=== PATIENT | female | born 1985 | race Two or more races ===

== ENCOUNTER 2025-02-15 06:28 | Day surgery (SDC) | payer OTHER, SELFPAY | END 2025-02-15 12:09 | disposition home or self-care (01) | LOC: GI 06:28 | PROVIDERS: ATTENDING PHYSICIAN Internal Medicine | DX: Z12.11 Encounter for screening for malignant neoplasm of colon (principal); K63.89 Other specified diseases of intestine; Z86.0100 Personal history of colon polyps, unspecified; Z80.0 Family history of malignant neoplasm of digestive organs | CPT/HCPCS: 45380; 88305 ==